=== PATIENT | female | born 1935 | race Caucasian/White ===

== ENCOUNTER 2018-01-16 12:29 | Outpatient (CLI) | payer MEDICARE ==
--- NOTE | 2018-01-16 12:53 | RAD ---
TWO VIEW CHEST: Comparison: 07-06-15 Indication: Chest pain FINDINGS: There is hyperinflation of the lungs. The cardiac silhouette is prominent. No significant vascular co ngestion. Interstitial opacities are seen bilaterally. There is stable ectasia of the aortic knob wit h calcification. IMPRESSION: COPD. Prominent cardiac silhouette. POS: [facility]
== END 2018-01-16 12:30 | disposition home or self-care (01) ==
LOC: RAD 12:29
PROVIDERS: ATTEND Internal Medicine Critical Care Medicine
DX: R06.00 Dyspnea, unspecified (principal); J44.9 Chronic obstructive pulmonary disease, unspecified
CPT/HCPCS: 71046

== ENCOUNTER 2018-03-05 10:59 | Outpatient (CLI) | payer MEDICARE | END 2018-03-05 11:00 | disposition home or self-care (01) | LOC: BICMAMMO 10:59 | PROVIDERS: ATTEND Family Medicine | DX: Z12.31 Encounter for screening mammogram for malignant neoplasm of breast (principal); Z85.3 Personal history of malignant neoplasm of breast | CPT/HCPCS: 77063; 77067 ==

== ENCOUNTER 2019-05-05 12:32 | Outpatient (CLI) | payer MEDICARE ==
--- NOTE | 2019-05-05 14:24 | RAD ---
PA AND LATERAL CHEST: Date: 05/05/2019 INDICATION: History of dyspnea. COMPARISON: Prior exam dated 01/16/2018. FINDINGS: COPD change and scattered fibrosis is stable. Moderate cardiomegaly is similar appearing. No air spac e consolidation, pleural effusion, or pneumothorax is evident. Diffuse osteopenia and scattered degen erative change is similar appearing. Instrumentation of lower cervical spine stable. IMPRESSION: No acute abnormality. POS: [facility]
== END 2019-05-05 12:33 | disposition home or self-care (01) ==
LOC: RAD 12:32
PROVIDERS: ATTEND Internal Medicine Critical Care Medicine
DX: R06.00 Dyspnea, unspecified (principal)
CPT/HCPCS: 71046

== ENCOUNTER 2021-03-12 08:07 | Inpatient (IN) | payer MEDICARE ==
[2021-03-12 09:16] LABS: ALT (SGPT) 10 U/L (8-55); AST (SGOT) 15 U/L (5-34); Albumin 3.8 g/dL (3.4-4.8); Alkaline Phosphatase 100 U/L (40-110); Anion Gap 10 mmol/L (10-20); BUN (Urea Nitrogen) 12 mg/dL (9.8-20.1); Calc. Creatinine Clearance 0 mL/min (70-130); Calcium 9.4 mg/dL (7.8-10.44); Carbon Dioxide 33 mmol/L (23-31); Chloride 100 mmol/L (98-107); Globulin 2.7 g/dL (2.4-3.5); Glucose 150 mg/dL (83-110); Magnesium 1.9 mg/dL (1.6-2.6); Potassium 5.1 mmol/L (3.5-5.1); Protein, Total 6.5 g/dL (5.8-8.1); Sodium 138 mmol/L (136-145)
[2021-03-12 11:50] LABS: #Eosinphils 0.1 thou/uL (0.0-0.7); #Lymphocytes 0.9 thou/uL (1.20-3.40); #Monocytes 0.2 thou/uL (0.11-0.59); #Neutrophils 7.9 thou/uL (1.40-6.50); %Basophils 0.5 % (0.0-1.0); %Eosinophils 0.7 % (0.0-10.0); %Lymphocytes 10.1 % (21.0-51.0); %Monocytes 2.5 % (0.0-10.0); %Neutrophils 86.3 % (42.0-75.0); Hemoglobin 14.5 g/dL (12.0-16.0); Mean Corpuscular HGB CONC 32.6 g/dL (32.0-36.0); Mean Corpuscular Hemoglobin 31.3 pg (27.0-31.0); Mean Platelet Volume 8.5 fL (7.4-10.4); Platelet Count 168 thou/uL (130-400); RBC Distribution Width 11.5 % (11.5-14.5); Red Blood Cell (RBC) Count 4.65 mill/uL (4.20-5.40); White Blood Cell (WBC) Count 9.2 thou/uL (4.8-10.8)
[2021-03-12] MEDS ORDERED: Meclizine HCl 25 MG TAB ONE (12:05)
[2021-03-12 14:14] LABS: Troponin I 0.018 ng/mL (< 0.028)
[2021-03-12 14:15] LABS: SARS-CoV-2 NAA Rapid Test Not Detected (NotDetected)
[2021-03-12] MEDS ORDERED: Acetaminophen 325 MG TAB PO PRN (15:48)
[2021-03-12] MEDS ORDERED: Ondansetron ODT 4 MG TAB PO PRN (15:48)
[2021-03-12 16:39] VITALS: BMI 23.8
[2021-03-12 17:59] LABS: Troponin I 0.015 ng/mL (< 0.028)
[2021-03-12] MEDS: Meclizine HCl 25 MG TAB PO SCH ×2 (18:02→23:16)
[2021-03-12] MEDS: Mometasone 200 MCG/Formoterol 5 MCG 120 PUFF INHALER INH SCH (19:48)
[2021-03-13 05:36] LABS: #Lymphocytes 2.1 thou/uL (1.20-3.40); #Monocytes 0.5 thou/uL (0.11-0.59); #Neutrophils 7.3 thou/uL (1.40-6.50); %Basophils 0.3 % (0.0-1.0); %Eosinophils 0.5 % (0.0-10.0); %Lymphocytes 20.9 % (21.0-51.0); %Monocytes 5.3 % (0.0-10.0); Hemoglobin 13.8 g/dL (12.0-16.0); Mean Corpuscular HGB CONC 32.2 g/dL (32.0-36.0); Mean Corpuscular Hemoglobin 31.1 pg (27.0-31.0); Mean Corpuscular Volume 96.5 fL (78.0-98.0); Mean Platelet Volume 8.1 fL (7.4-10.4); Platelet Count 176 thou/uL (130-400); RBC Distribution Width 11.5 % (11.5-14.5); Red Blood Cell (RBC) Count 4.45 mill/uL (4.20-5.40); White Blood Cell (WBC) Count 10.1 thou/uL (4.8-10.8)
[2021-03-13 06:02] LABS: Anion Gap 9 mmol/L (10-20); BUN (Urea Nitrogen) 11 mg/dL (9.8-20.1); Calc. Creatinine Clearance 63 mL/min (70-130); Calcium 9.2 mg/dL (7.8-10.44); Carbon Dioxide 32 mmol/L (23-31); Chloride 101 mmol/L (98-107); Glucose 97 mg/dL (83-110); Potassium 4.2 mmol/L (3.5-5.1); Sodium 138 mmol/L (136-145)
[2021-03-13] MEDS: Mometasone 200 MCG/Formoterol 5 MCG 120 PUFF INHALER INH SCH ×2 (07:17→19:38)
[2021-03-13] MEDS: Meclizine HCl 25 MG TAB PO SCH ×4 (07:30→23:01)
[2021-03-13] MEDS ORDERED: FLU VACC QS2021-22(65YR UP)/PF 240 MCG/0.7 ML SYRINGE IM ONE (09:00)
[2021-03-13] MEDS ORDERED: Sodium Chloride 0.9% 500 ML IV SCH (17:15)
[2021-03-13] MEDS ORDERED: Sodium Chloride 0.9% 1,000 ML IV SCH (17:15)
[2021-03-14] MEDS: Meclizine HCl 25 MG TAB PO SCH ×2 (06:02→12:16)
[2021-03-14] MEDS: Mometasone 200 MCG/Formoterol 5 MCG 120 PUFF INHALER INH SCH (10:02)
[2021-03-14 16:16] VITALS: BP 151/92; TEMP 98.5
== END 2021-03-14 16:06 | disposition home or self-care (01) | DRG 149 ==
LOC: ERS 08:07 → NEURO 13:25 → OBSVTOIN 03-14 15:01
PROVIDERS: ADMIT Family Medicine; ATTEND Internal Medicine
DX: H81.10 Benign paroxysmal vertigo, unspecified ear (principal); Z20.822 Contact with and (suspected) exposure to COVID-19; R09.02 Hypoxemia; J44.9 Chronic obstructive pulmonary disease, unspecified; F17.210 Nicotine dependence, cigarettes, uncomplicated; Z85.3 Personal history of malignant neoplasm of breast; Z88.0 Allergy status to penicillin; Z90.49 Acquired absence of other specified parts of digestive tract; Z90.710 Acquired absence of both cervix and uterus
CPT/HCPCS: 0240U; 36415; 70450; 71045; 80048; 80053; 83735; 83880; 84484; 85025; 93005; 94640; G0378; J7030; J7050; J7620

== ENCOUNTER 2022-02-06 10:27 | Outpatient (CLI) | payer OTHER | END 2022-02-06 10:28 | disposition home or self-care (01) | LOC: RAD 10:27 | PROVIDERS: ATTEND Internal Medicine Critical Care Medicine | DX: R06.00 Dyspnea, unspecified (principal) | CPT/HCPCS: 71046 ==

== ENCOUNTER 2022-02-22 13:50 | Outpatient (CLI) | payer OTHER | END 2022-02-22 13:51 | disposition home or self-care (01) | LOC: BICCT 13:50 | PROVIDERS: ATTEND Internal Medicine Critical Care Medicine | DX: R91.1 Solitary pulmonary nodule (principal); R91.8 Other nonspecific abnormal finding of lung field; C96.9 Malignant neoplasm of lymphoid, hematopoietic and related tissue, unspecified; C78.1 Secondary malignant neoplasm of mediastinum; I51.7 Cardiomegaly; I25.10 Atherosclerotic heart disease of native coronary artery without angina pectoris; I70.0 Atherosclerosis of aorta; E04.2 Nontoxic multinodular goiter | CPT/HCPCS: 71260; 82565 ==

== ENCOUNTER 2022-03-08 08:40 | Outpatient (CLI) | payer OTHER | END 2022-03-08 08:41 | disposition home or self-care (01) | LOC: ULT 08:40 | PROVIDERS: ATTEND Internal Medicine Cardiovascular Disease | DX: I71.43 Infrarenal abdominal aortic aneurysm, without rupture (principal) | CPT/HCPCS: 76706 ==

== ENCOUNTER 2022-03-16 08:32 | Day surgery (SDC) | payer OTHER ==
[2022-03-16 08:39] VITALS: BMI 22.4
[2022-03-16 08:40] LABS: #Eosinphils 0.1 thou/uL (0.0-0.7); #Monocytes 0.6 thou/uL (0.11-0.59); #Neutrophils 5.9 thou/uL (1.40-6.50); %Basophils 0.4 % (0.0-1.0); %Eosinophils 1.4 % (0.0-10.0); %Lymphocytes 23.2 % (21.0-51.0); %Monocytes 7.1 % (0.0-10.0); %Neutrophils 67.9 % (42.0-75.0); Mean Corpuscular HGB CONC 31.1 g/dL (32.0-36.0); Mean Corpuscular Hemoglobin 28.6 pg (27.0-31.0); Mean Corpuscular Volume 92.2 fl (78.0-98.0); Mean Platelet Volume 8.3 fL (7.4-10.4); Platelet Count 260 10x3/uL (130-400); RBC Distribution Width 11.9 % (11.5-14.5); Red Blood Cell (RBC) Count 5.23 mill/uL (4.20-5.40); White Blood Cell (WBC) Count 8.7 10x3/uL (4.8-10.8)
[2022-03-16 08:56] LABS: INR-International Normal Ratio 0.9; PTT 28.1 sec (22.9-36.1); Prothrombin Time 12.4 sec (12.0-14.7)
== END 2022-03-16 10:20 | disposition home or self-care (01) ==
LOC: CT 08:32
PROVIDERS: ATTEND Internal Medicine Critical Care Medicine
DX: R91.8 Other nonspecific abnormal finding of lung field (principal); Z53.20 Procedure and treatment not carried out because of patient's decision for unspecified reasons; Z79.899 Other long term (current) drug therapy
CPT/HCPCS: 85025; 85610; 85730

== ENCOUNTER 2022-06-13 14:38 | Emergency (ER) | payer OTHER | END 2022-06-13 17:47 | disposition home or self-care (01) | LOC: ERS 14:38 | DX: S37.92XA Contusion of unspecified urinary and pelvic organ, initial encounter (principal); J44.9 Chronic obstructive pulmonary disease, unspecified; F17.210 Nicotine dependence, cigarettes, uncomplicated | CPT/HCPCS: 72170 ==